=== PATIENT | female | born 2005 | race Hispanic/Latino ===

== ENCOUNTER 2025-07-23 23:32 | Emergency (ER) | payer BC ==
[2025-07-24 00:41] LABS: #Basophils 0.06 10x3/uL (0.0-0.2); #Eosinophils 0.17 10x3/uL (0.0-0.7); #Monocytes 0.56 10x3/uL (0.11-0.59); #Neutrophils 6.30 10x3/uL (1.40-6.50); %Basophils 0.6 % (0.0-1.0); %Eosinophils 1.8 % (0.0-10.0); %Lymphocytes 22.7 % (21.0-51.0); %Monocytes 5.9 % (0.0-10.0); %Neutrophils 67.0 % (42.0-75.0); Hematocrit 40.8 % (36.0-47.0); Hemoglobin 13.7 g/dL (12.0-16.0); Mean Corpuscular Hemoglobin 26.7 pg (27.0-31.0); Mean Corpuscular Volume 79.4 fL (78.0-98.0); Platelet Count 346 10x3/uL (130-400); Red Blood Cell (RBC) Count 5.14 mill/uL (4.20-5.40); White Blood Cell (WBC) Count 9.42 10x3/uL (4.8-10.8)
[2025-07-24 00:43] LABS: Glucose, Urine (Dipstick) >=1000 mg/dL (Negative); Leukocyte Negative (Negative); Protein, Urine (Dipstick) Negative (Neg-Trace); Specific Gravity, Urine 1.015 (1.005-1.030)
[2025-07-24 00:44] LABS: Bacteria/HPF None Seen HPF (None Seen); CAUTI Indications for Culture Pelvic or flank pain; RBC/HPF 0-3 HPF (0-3); WBC/HPF None Seen HPF (0-3)
[2025-07-24 00:52] LABS: BHCG - Serum Negative (NEGATIVE); Pregs Control Background? CLEAR/WHITE (CLR/WHITE); Pregs Control Bar Appear? YES (CONTROL BAR); Urine Culture Reflex No No
[2025-07-24 00:57] LABS: ALT (SGPT) 15 U/L (Less than 34); AST (SGOT) 15 U/L (11-34); Albumin 4.2 g/dL (3.1-4.5); Alkaline Phosphatase 113 U/L (40-110); Anion Gap 15 mmol/L (10-20); BUN (Urea Nitrogen) 18 mg/dL (7.0-18.7); Bilirubin, Total 0.2 mg/dL (0.3-1.2); Calc. Creatinine Clearance 0 mL/min (70-130); Calcium 9.7 mg/dL (7.8-10.44); Carbon Dioxide 23 mmol/L (22-29); Chloride 104 mmol/L (98-107); Globulin 3.5 g/dL (2.4-3.5); Glucose 282 mg/dL (70-105); Magnesium 1.5 mg/dL (1.6-2.6); Potassium 3.9 mmol/L (3.5-5.1); Sodium 138 mmol/L (136-145)
[2025-07-24 01:07] LABS: Actual Bicarbonate (HCO3v) 21.3 mEq/L (22-28); Base Excess -2.9 mEq/L (-2.0 to +3.0); Calcium, Ionized (venous) 1.17 mmol/L (1.16-1.32); Chloride (VBG) 102 mmol/L (98-106); Hematocrit-VBG 44 % (36.0-47.0); Hemoglobin (Hb) 14.8 g/dL (11.7-15.5); Potassium (VBG) 3.83 mmol/L (3.70-5.30); Sodium 140 mmol/L (133-146)
== END 2025-07-24 01:53 | disposition home or self-care (01) ==
LOC: ERS 23:32
DX: E10.65 Type 1 diabetes mellitus with hyperglycemia (principal); Z79.4 Long term (current) use of insulin
CPT/HCPCS: 36416; 80053; 81001; 82010; 82805; 83735; 84100; 84703; 85025; 96360